=== PATIENT | male | born 1955 | race Caucasian/White ===

== ENCOUNTER → 2019-12-28 07:59 | Outpatient (BNVA) | payer MEDICARE, SELFPAY | PROVIDERS: PCP Internal Medicine; Referring Provider Internal Medicine; Visit Provider Internal Medicine Endocrinology, Diabetes & Metabolism | DX: E89.0 Postprocedural hypothyroidism (principal); Z85.850 Personal history of malignant neoplasm of thyroid; Z79.899 Other long term (current) drug therapy | CPT/HCPCS: 99214 ==

== ENCOUNTER → 2020-06-27 07:39 | Outpatient (BNVA) | payer MEDICARE, SELFPAY | PROVIDERS: PCP Internal Medicine; Visit Provider Internal Medicine Endocrinology, Diabetes & Metabolism | DX: E89.0 Postprocedural hypothyroidism (principal); C73 Malignant neoplasm of thyroid gland | CPT/HCPCS: 99212 ==

== ENCOUNTER 2020-06-27 08:23 | Outpatient (REF) | payer MEDICARE, SELFPAY ==
[2020-06-27 11:06] LABS: Free T4 (Free Thyroxine) 1.04 ng/dL (0.71-1.85); Thyroid Stimulating Hormone 2.81 uIU/mL (0.32-4.0)
== END 2020-06-27 08:24 | disposition home or self-care (01) ==
LOC: HO.10HDL 08:23
PROVIDERS: Visit Provider Internal Medicine Endocrinology, Diabetes & Metabolism
DX: E89.0 Postprocedural hypothyroidism (principal); C73 Malignant neoplasm of thyroid gland
CPT/HCPCS: 36415; 84439; 84443

== ENCOUNTER 2024-12-14 14:08 | Outpatient (AMB) | payer MEDICARE, SELFPAY ==
[2024-12-14 14:13] VITALS: BP 162/94; PULSE 82; RESP 18; O2SAT 98; BMI 36.2
--- NOTE | 2024-12-14 14:13 | A.OFFVIS_ITS ---
Vital Signs 12/14/24 14:13 Height 5 ft 4 in Weight 211 lb BMI 36.2 BP 162/94 H Blood Pressure Location Lt brachial Position Sitting Respiration 18 Pulse 82 Pulse Source Pulse Oximeter Pulse Oximetry (%) 98 Oxygen Delivery Method Room Air Intake Visit Reasons: DIABETIC MONONEUROPATHY Magazine Publisher Required: No Allergies morphine Allergy (Unknown, Verified 12/14/24 14:10) Unknown HPI HPI DIABETIC MONONEUROPATHY: Details: Belem (who wants to be called Puneet) presents in my office with somewhat unusual presentation. He was referred to my office with diagnosis of diabetic mononeuropathy. However the patient denies diabetes. He reports pain in the left lower extremity radiating down to the left foot as well as pain in the right foot. He reports that he is not able to lift his left hip form the ground. He relates his pain to a fall in 2023. He reports fall in the driveway at his house. He reports his pain 8/10 today. Because of his pain he can not do any activities of daily living can not take care of himself can not function normally and can not sleep normally. He is unemployed and on fix it income. His pain is not affected by any applications. He reports in terms of tissue damage his pain as hot burning, tingling, hurting,sore,hurting, aching, tight and heavy sensation. He received xray images of his foot, he went for physical therapy and reported no improvement, he received steroid injection into the left 1st metatarsal pharyngeal joint with no improvement. He stated today that he had an EMG performed however this EMG is not available for me. This is crucial element of the diagnostic study which will allow me to consider what is the situation with this patient. He was referred here as the diabetic neuropathy patient but patient denies diabetes. He has difficulty lifting his left hip flexing hip in the hip joint and this maybe a result of the spinal problems. [facility] Medical History (Updated 12/14/24 @ 16:51 by Bg Salmon MD) Post-surgical hypothyroidism Thyroid cancer Surgical History (Updated 12/23/19 @ 11:19 by AKTHY Holland) History of quadruple bypass Hx of right inguinal hernia repair Hx of lithotripsy Hx of total thyroidectomy Family History (Updated 12/28/19 @ 08:07 by Gina Cruz LPN) Brother No problems noted. Father No problems noted. Social History (Updated 12/28/19 @ 08:08 by Gina Cruz LPN) Years Smoked: 12 years Review of Systems Const All systems reviewed & are unremarkable except as noted in HPI and below ENT Reports Normal hearing present Neuro Reports Normal hearing present, Denies Abnormal speech present, Denies confusion and Denies Sensory deficit (Neuro) Psych Denies confusion Physical Exam Vital Signs: Last Vital Signs Pulse 82 12/14/24 14:13 Resp 18 12/14/24 14:13 BP 162/94 H 12/14/24 14:13 Pulse Ox 98 12/14/24 14:13 Oxygen Delivery Method Room Air 12/14/24 14:13 BMI result Body Mass Index 36.2 Const General: no acute distress; No confusion Orientation/consciousness: patient oriented x3 and No confusion Eyes General: appearance normal, both eyes and all related structures Pupils: Equal, round and reactive pupils present EOM: EOMs intact bilaterally Neck Neck: Yes full ROM Chest Chest palpation & inspection: normal inspection of the chest Resp Effort & Inspection: normal respiratory effort, able to speak in complete sentences, normal respiratory pattern, no audible wheezes and no cough Cardio Jugular venous distension: no JVD GI Inspection: Yes normal to inspection Neuro General: patient oriented x3, gait normal and No confusion Cranial nerves: Yes CN's II-XII intact bilaterally, Yes Equal, round and reactive pupils present, Yes Normal hearing present and Yes Ability to bilat erally elevate shoulders present Speech: No Abnormal speech present Gait exam (Neuro): Normal gait present Motor exam (neuro): 5/5 motor strength present throughout Sensory Exam: No Sensory deficit (Neuro) Extrem Other: Bilateral lower extremities are slightly edematous, with pale discoloration. The patient reports tenderness on palpation in the projection of the bilateral MP joints. Bilateral PT and DP pulses are +2 and symmetrical. Unable to lift the left foot from the ground unable to flex left hip joint. General: No pedal edema Psych Speech and movement: Normal speech and movement present Affect: normal affect Attitude: cooperative Thought process: Normal thought process present Thought content: Normal thought content present Insight: Good insight present (Psych) Judgement: Good judgement present (Psych) Assessment & Plan Assessment & Plan (1) Polyneuropathy: Code(s): G62.9 - Polyneuropathy, unspecified Category: Medical (2) Gout: Code(s): M10.9 - Gout, unspecified Category: Medical (3) Chronic pain syndrome: Code(s): G89.4 - Chronic pain syndrome Category: Medical (4) Diabetes: Code(s): E11.9 - Type 2 diabetes mellitus without complications Category: Medical (5) Gout: Code(s): M10.9 - Gout, unspecified Category: Medical Plan This patient is suffering from low back pain which referral organization attributed to diabetic neuropathy. However patient denies diabetes. He had diagnostic EMG procedure performed which is not available for me today. He admits thyroid cancer long time ago, he had thyroidectomy but never was treated with chemotherapy or radioactive iodine treatment. Those all the possible etiological causes of the neuropathy. I decided to take a pause with this patient and request him to sign medical information release note to obtain EMG from [facility]. I also will send this patient for CBC with differential, hemoglobin A1c, comprehensive metabolic panel. I will see this patient in 1 week. Orders: Orders Complete Blood Count Auto Diff Today G62.9 - Polyneuropathy, unspecified, G89.4 - Chronic pain syndrome, M10.9 - Gout, unspecified Comprehensive Met. Panel Today E11.9 - Type 2 diabetes mellitus without complications Hemoglobin A1c Today E11.9 - Type 2 diabetes mellitus without complications, G62.9 - Polyneuropathy, unspecified, G89.4 - Chronic pain syndrome, M10.9 - Gout, unspecified Uric Acid Urine Random Today E11.9 - Type 2 diabetes mellitus without complications, M10.9 - Gout, unspecified Coding Level of Care Code New Pt Level 3 (41567) Diagnoses Polyneuropathy G62.9 Gout M10.9 Chronic pain syndrome G89.4 Diabetes E11.9
--- OUTSIDE RECORDS SUMMARY | 2024-12-14 16:05 | XMS_ITS | Encounter Summary ---
Author Organization [facility] Address [address] [place] [address] Care Team Providers Care Polishing Machine Operator Name Role Phone King Woodson MD Primary Care Provider [phone] Encounter Details Date Type Department Care Team ([facility] st Contact Info) Description 11/15/2024 Telephone Orthopedic Surgery - [place] [address] [phone] Eldon Rodriguez, DPM [address] [address] Social History Tobacco Use Types Packs/Day Years Used Date Smoking Tobacco: Never Assessed Sex and Gender Information Value Date Recorded Sex Assigned at Not on file Legal Sex Male 6:18 AM EST Gender Identity Not on file Sexual Orientation Not on file documented as of this encounter Progress Notes * Leigh Rodriges - 11/21/2024 4:04 PM EDT Faxed [phone] * Iesha Aguilar - 11/15/2024 3:45 PM EDT Belem called in stating [facility] still has not received his referral. He states it has been over a month. He is asking for it to be resent. Please advise. Thanks documented in this encounter Plan of Treatment Not on file documented as of this encounter Visit Diagnoses Not on filedocumented in this encounter Care Teams Polishing Machine Operator Relationship Specialty Start Date End Date King Woodson MD [address] [place] [address] PCP - General Internal Medicine 07/21/24 documented as of this encounter
--- OUTSIDE RECORDS SUMMARY | 2024-12-14 16:05 | XMS_ITS ---
Author Name [facility] Organization Unknown Encounters Encounter Type Encounter Reason Primary Diagnosis Location Date Ambulatory [facility] 12/06/2024
--- OUTSIDE RECORDS SUMMARY | 2024-12-14 16:05 | XMS_ITS | Clinical Summary ---
Author Organization [facility] Address [address] [place] [address] Phone Care Team Providers Care Internet Database Specialist Name Role Phone King Woodson MD Primary Care Provider [phone] Allergies No known active allergies Medications lidocaine (LIDODERM) 5 % patch Apply 1 patch topically 1 (one) time each day. Remove & discard patch within 12 hours or as directed by . 30 each 2 5 01/23/20 25 Active diclofenac (Voltaren Arthritis Pain) 1 % topical gel Apply 4 g topically 2 (two) times a day. 240 g 1 5 12/26/19 25 Active Encounters Date Type Department Care Team Description 12/07/2024 2:30 PM EDT Office Visit Orthopedic [facility] [address] [address] Eldon Rodriguez DPM Onychomycosis (Primary Dx); Diabetic mononeuropathy simplex (CMS/HCC V24, CMS/HCC V28); Hallux rigidus of left foot; Dermatophytosis of nail 11/15/2024 Telephone Orthopedic Surgery [facility] [address] [address] Eldon Rodriguez DPM 10/25/2024 Telephone Orthopedic [facility] [address] [phone] Eldon Rodriguez DPM 10/24/2024 2:00 PM EDT Office Visit Orthopedic [facility] [address] [address] Eldon Rodriguez, DPM Diabetic mononeuropathy simplex ([facility] V24, [facility] V28) (Primary Dx); Great toe pain, left; Onychomycosis; Hallux rigidus of left foot; Dermatophytosis of nail; Pain in toe of right foot; Pain in toe of left foot from Last 3 Months Social History Tobacco Use Types Packs/Day Years Used Date Smoking Tobacco: Never Assessed Sex and Gender Information Value Date Recorded Sex Assigned at Not on file Legal Sex Male 6:18 AM EST Gender Identity Not on file Sexual Orientation Not on file Plan of Treatment Health Maintenance Due Date Last Done Comments Diabetes: Annual GFR (Glomerular Filtration Rate) 1955 Diabetes: Annual Foot Exam 09/23/1963 Diabetes: Annual Retina Eye Exam 09/23/1963 Zoster Vaccines (1 of 2) 09/23/2003 RSV Immunization Adult Patients (1 - Risk 60-74 years 1-dose series) 2013 Pneumococcal Vaccine: 50+ Years (2 of 2 - PPSV23) 06/06/2019 04/11/2019 Abdominal Aortic Aneurysm (AAA) Screen 03/01/2022 Cholesterol Screening (Lipid Panel) 03/01/2022 Colorectal Cancer Screening: Colonoscopy 03/01/2022 Falls Risk Assessment 03/01/2022 Hepatitis C Screening 03/01/2022 Medicare Annual Wellness Visit 03/01/2022 Social Influencers of Health Screening 03/01/2022 Depression Screening 03/29/2024 Diabetes: Annual Urine Albumin-Creatinine Ratio (uACR) 10/24/2024 Diabetes: Blood Sugar Contro l Test (HGBA1C) 10/24/2024 Hypertension/CHF/CAD Annual BMP Blood Test 10/24/2024 COVID-19 Vaccine (1 - 2023-2 5 season) 2024 Influenza Vaccine (#1) 2024 , 02/08/2019 DTaP,Tdap,and Td Vaccines (3 - Td or Tdap) 02/14/2034 02/15/2024, 05/31/2012 HIB Vaccines Aged Out No longer eligi ble based on patient's age to complete this topic HPV Vaccines Aged Out No longer eligi ble based on patient's age to complete this topic Hepatitis A Vaccines Aged Out No long er eligible based on patient's age to complete this topic Hepatitis B Vaccines Aged Out No long er eligible based on patient's age to complete this topic IPV Vaccines Aged Out No longer eligi ble based on patient's age to complete this topic MMR Vaccines Aged Out No longer eligi ble based on patient's age to complete this topic Meningococcal ACWY Vaccine Aged Out N o longer eligible based on patient's age to complete this topic Meningococcal B Vaccine Aged Out No l onger eligible based on patient's age to complete this topic RSV Immunization Patients Under 20 months Aged Out No longer eligible b ased on patient's age to complete this topic Varicella Vaccines Aged Out No longer eligible based on patient's age to complete this topic Procedures Procedure Name Priority Date/Time Associated Diagnosis Comments INJECTION TENDON OR LIGAMENT Routine 10/24/2024 2:00 PM EDT Hallux rigidus of left foot from Last 3 Months Results * Injection tendon or ligament (10/24/2024 2:00 PM EDT) Eldon Power DPM - 10/24/2024 2:00 PM EDT Eldon Rodriguez DPM 10/24/2024 5:49 PM Injection tendon or ligament Indications: pain Details: 25 G needle Medications: 0.5 mL lidocaine (PF) 1 %; 20 mg triamcinolone acetonide 40 mg/mL Informed Consent: Site: Foot ligament tendon Eldon Rodriguez DPM IN CLINIC/BEDSIDE ORDERAB LES Final Result from Last 3 Months Insurance [employer] Care Teams Internet Database Specialist Relationship Specialty Start Date End Date King Woodson MD [address] [place] [id number] PCP - General Internal Medicine 07/21/24
== END 2024-12-14 14:25 | disposition home or self-care (01) ==
LOC: HO.PMC 14:09
PROVIDERS: PCP Internal Medicine; Visit Provider Anesthesiology
DX: E11.40 Type 2 diabetes mellitus with diabetic neuropathy, unspecified (principal); G62.9 Polyneuropathy, unspecified; M10.9 Gout, unspecified; G89.4 Chronic pain syndrome
CPT/HCPCS: 99203

== ENCOUNTER → 2024-12-14 14:08 | Outpatient (BNVA) | payer MEDICARE, SELFPAY | PROVIDERS: PCP Internal Medicine; Visit Provider Anesthesiology | DX: G62.9 Polyneuropathy, unspecified (principal); M10.9 Gout, unspecified; G89.4 Chronic pain syndrome; E11.41 Type 2 diabetes mellitus with diabetic mononeuropathy | CPT/HCPCS: 99202 ==

== ENCOUNTER 2024-12-28 09:12 | Outpatient (AMB) | payer MEDICARE, SELFPAY ==
[2024-12-28 09:23] VITALS: BP 185/105; PULSE 73; RESP 18; O2SAT 97
--- NOTE | 2024-12-28 09:23 | A.OFFVIS_ITS ---
Vital Signs 12/28/24 09:23 Weight 210 lb BP 185/105 H Blood Pressure Location Lt brachial Position Sitting Respiration 18 Pulse 73 Pulse Source Pulse Oximeter Pulse Oximetry (%) 97 Oxygen Delivery Method Room Air Intake Visit Reasons: Follow Up Business Enterprise Officer Required: No Allergies morphine Allergy (Unknown, Verified 12/28/24 09:30) Unknown HPI Comments Details: Puneet is back in my office to discuss the results of the blood work and results of the electromyography he had with [facility] in 2022. On the lab results he is slightly anemic however his hemoglobin A1c is normal below 6. Therefore the patient is not diabetic, although he was referred to my office to be treated as the diabetes patient with diabetic neuropathy. The EMG demonstrated: 1. No evidence of generalized peripheral neuropathy, 2. Mild right ulnar neuropathy across the cubital tunnel. 3. Mild right peroneal neuropathy mostly affecting the sensory component, 4. Mild EMG changes in lower paraspinal muscle suggesting bilateral lower radiculopathy. The patient complains on pins and needles in the left lower extremity as well as inability or difficulty to flex the hip joint and lift the hip from the ground. He reports mild pain but states that it is not the pain which affects his inability to lift the leg. I suspect this patient has radiculopathy of the lumbar spine. I will send him for the MRI of the lumbar spine. I will see him in the office after the MRI. Patient was instructed to give us a call to schedule an appointment as soon as he will step up from the MRI machine. Prior: He was referred to my office with diagnosis of diabetic mononeuropathy. However the patient denies diabetes. He reports pain in the left lower extremity radiating down to the left foot as well as pain in the right foot. He reports that he is not able to lift his left hip form the ground. He relates his pain to a fall in 2023. He reports fall in the driveway at his house. He reports his pain 8/10 today. He received xray images of his foot, he went for physical therapy and reported no improvement, he received steroid injection into the left 1st metatarsal pharyngeal joint with no improvement. He stated today that he had an EMG performed however this EMG is not available for me. This is crucial element of the diagnostic study which will allow me to consider what is the situation with this patient. He was referred here as the diabetic neuropathy patient but patient denies diabetes. He has difficulty lifting his left hip flexing hip in the hip joint and this maybe a result of the spinal problems. [facility] Medical History (Updated 12/28/24 @ 10:23 by Bg Salmon MD) Post-surgical hypothyroidism Thyroid cancer Surgical History (Updated 12/23/19 @ 11:19 by KATHY Holland) History of quadruple bypass Hx of right inguinal hernia repair Hx of lithotripsy Hx of total thyroidectomy Family History (Updated 12/28/19 @ 08:07 by Gina Cruz LPN) Brother No problems noted. Father No problems noted. Social History (Updated 12/28/19 @ 08:08 by Gina Cruz LPN) Years Smoked: 12 years Review of Systems Const All systems reviewed & are unremarkable except as noted in HPI and below ENT Reports Normal hearing present Neuro Reports Normal hearing present, Denies Abnormal speech present, Denies confusion and Denies Sensory deficit (Neuro) Psych Denies confusion Physical Exam Vital Signs: Last Vital Signs Pulse 73 12/28/24 09:23 Resp 18 12/28/24 09:23 BP 185/105 H 12/28/24 09:23 Pulse Ox 97 12/28/24 09:23 Oxygen Delivery Method Room Air 12/28/24 09:23 Const General: no acute distress; No confusion Orientation/consciousness: patient oriented x3 and No confusion Eyes General: appearance normal, both eyes and all related structures Pupils: Equal, round and reactive pupils present EOM: EOMs intact bilaterally Neck Neck: Yes full ROM Chest Chest palpation & inspection: normal inspection of the chest Resp Effort & Inspection: normal respiratory effort, able to speak in complete sentences, normal respiratory pattern, no audible wheezes and no cough Cardio Jugular venous distension: no JVD GI Inspection: Yes normal to inspection Back/Spine/Pelvis Other: He reports pins and needles in the left lower extremity. He also reports and demonstrates objective difficulty with lifting left hip from the ground. He has difficulty flexing his left hip joint. Neuro General: patient oriented x3, gait normal and No confusion Cranial nerves: Yes CN's II-XII intact bilaterally, Yes Equal, round and reactive pupils present, Yes Normal hearing present and Yes Ability to bilaterally elevate shoulders present Speech: No Abnormal speech present Gait exam (Neuro): Normal gait present Motor exam (neuro): 5/5 motor strength present throughout Sensory Exam: No Sensory deficit (Neuro) Extrem General: No pedal edema Psych Speech and movement: Normal speech and movement present Affect: normal affect Attitude: cooperative Thought process: Normal thought process present Thought content: Normal thought content present Insight: Good insight present (Psych) Judgement: Good judgement present (Psych) Assessment & Plan Assessment & Plan (1) Polyneuropathy: Code(s): G62.9 - Polyneuropathy, unspecified Category: Medical (2) Gout: Code(s): M10.9 - Gout, unspecified Category: Medical (3) Chronic pain syndrome: Code(s): G89.4 - Chronic pain syndrome Category: Medical (4) Gout: Code(s): M10.9 - Gout, unspecified Category: Medical (5) Radiculopathy, lumbar region: Code(s): M54.16 - Radiculopathy, lumbar region Category: Medical Plan See discussion as above. The radiculopathy of the lumbar spine can not be excluded. I will schedule this patient for MRI lumbar spine without contrast. After that we will meet in this office and discuss the results. Patient is instructed to give us a call is a very moment he will step out from the MRI machine. Orders: Orders MR lumbar spine wo con Today M54.16 - Radiculopathy, lumbar region Coding Level of Care Code Est Pt Level 3 (35530) Diagnoses Polyneuropathy G62.9 Gout M10.9 Chronic pain syndrome G89.4 Radiculopathy, lumbar region M54.16
--- OUTSIDE RECORDS SUMMARY | 2024-12-28 10:00 | XMS_ITS | Clinical Summary ---
Author Organization [facility] Address [address] [place] [address] Phone Care Team Providers Care Hospitality Intern Name Role Phone King Woodson MD Primary Care Provider [phone] Allergies No known active allergies Medications lidocaine (LIDODERM) 5 % patch Apply 1 patch topically 1 (one) time each day. Remove & discard patch within 12 hours or as directed by . 30 each 2 5 01/23/20 25 Active diclofenac (Voltaren Arthritis Pain) 1 % topical gel Apply 4 g topically 2 (two) times a day. 240 g 1 5 12/26/19 25 Encounters Date Type Department Care Team Description 12/07/2024 2:30 PM EDT Office Visit Orthopedic [facility] [address] [phone] Eldon Rodriguez DPM Onychomycosis (Primary Dx); Diabetic mononeuropathy simplex (CMS/HCC V24, CMS/HCC V28); Hallux rigidus of left foot; Dermatophytosis of nail 11/15/2024 Telephone Orthopedic Surgery [facility] [address] [phone] Eldon Rodriguez DPM 10/25/2024 Telephone Orthopedic [facility] [address] [phone] Eldon Rodriguez DPM 10/24/2024 2:00 PM EDT Office Visit Orthopedic [facility] [address] [phone] Eldon Rodriguez, [place] DEL[place] Diabetic mononeuropathy simplex ([facility] V24, [facility] V28) (Primary Dx); Great toe pain, left; [...] Health Maintenance Due Date Last Done Comments Colorectal Cancer Screening: Colonoscopy 1955 Diabetes: Annual GFR (Glomerular Filtration Rate) 1955 Diabetes: Annual Foot Exam 09/23/1963 Diabetes: Annual Retina Eye Exam 09/23/1963 Zoster Vaccines (1 of 2) 09/23/2003 RSV Immunization Adult Patients (1 - Risk 60-74 years 1-dose series) 2013 Pneumococcal Vaccine: 50+ Years (2 of 2 - PPSV23, PCV20, or PCV21) 06/06/2019 04/11/2019 Abdominal Aortic Aneurysm (AAA) Screen 03/01/2022 Cholesterol Screening (Lipid Panel) 03/01/2022 Falls Risk Assessment 03/01/2022 Hepatitis C [...] Months Insurance [employer] Care Teams Hospitality Intern Relationship Specialty Start Date End Date King Woodson MD [address] [place] [id number] PCP - General Internal Medicine 07/21/24
== END 2024-12-28 10:09 | disposition home or self-care (01) ==
LOC: HO.PMC 09:12
PROVIDERS: PCP Internal Medicine; Visit Provider Anesthesiology
DX: G62.9 Polyneuropathy, unspecified (principal); M10.9 Gout, unspecified; G89.4 Chronic pain syndrome; M54.16 Radiculopathy, lumbar region
CPT/HCPCS: 99213

== ENCOUNTER → 2024-12-28 09:12 | Outpatient (BNVA) | payer MEDICARE, SELFPAY | PROVIDERS: PCP Internal Medicine; Visit Provider Anesthesiology | DX: M54.16 Radiculopathy, lumbar region (principal); M10.9 Gout, unspecified; G89.4 Chronic pain syndrome; G62.9 Polyneuropathy, unspecified | CPT/HCPCS: 99212 ==

== ENCOUNTER → 2025-02-25 10:46 | Outpatient (BNV) | payer MEDICARE, SELFPAY | PROVIDERS: Visit Provider Radiology Vascular & Interventional Radiology | DX: M47.26 Other spondylosis with radiculopathy, lumbar region (principal) | CPT/HCPCS: 72148 ==

== ENCOUNTER 2025-02-25 10:54 | Outpatient (REF) | payer MEDICARE, SELFPAY ==
--- NOTE | ~2025-02-25 | MR_ITS ---
CLINICAL HISTORY: M54.16 - Radiculopathy, lumbar region MR lumbar spine without gadolinium Comparison: None Findings: No scoliosis or spondylolisthesis. No acute fracture or pathologic bone lesion. Cauda equina and conus medullaris within normal limits. Diffuse disc space loss and disc desiccation. Paraspinous musculature intact. Retroperitoneal structures visualized are unremarkable. Individual levels: T12-L1: Prominent right eccentric disc protrusion with facet hypertrophy. Moderate right neural foraminal narrowing. No central canal stenosis. L1-L2: Broad-based disc protrusion with facet hypertrophy. Moderate right neural foraminal narrowing. No central canal stenosis. L2-L3: Moderate broad-based disc protrusion with significant facet hypertrophy. Moderately severe left neural foraminal narrowing and moderate to severe central canal stenosis. L3-L4: Broad-based disc protrusion with facet hypertrophy. Moderate central canal stenosis and moderately severe bilateral neural foraminal narrowing. L4-L5: Small posterior disc protrusion. Moderately severe right neural foraminal narrowing and moderate left neural foraminal narrowing. L5-S1: Small posterior disc protrusion with facet hypertrophy. There is moderately severe bilateral neural foraminal narrowing. No central canal stenosis. IMPRESSION: Moderate lumbar spondylosis diffusely as detailed. This document has been electronically signed by: John Rodrigues MD on 02/26/2025 09:45:02
--- OUTSIDE RECORDS SUMMARY | 2025-02-25 10:59 | XMS_ITS | Clinical Summary ---
Author Organization [facility] Address [address] [place] [address] Phone Care Team Providers Care Sales Product Manager Name Role Phone King Woodson MD Primary Care Provider [phone] Allergies No known active allergies Encounters Date Type Department Care Team Description 12/07/2024 2:30 PM EDT Office Visit Orthopedic Surgery - [place] [address] [place] [phone] Eldon Rodriguez DPM Onychomycosis (Primary Dx); Diabetic mononeuropathy simplex (CMS/HCC V24, CMS/HCC V28); Hallux rigidus of left foot; Dermatophytosis of nail from Last 3 Months Social History Tobacco [...] 09/23/1963 Diabetes: Annual Retina Eye Exam 09/23/1963 RSV Immunization Adult Patients (1 - Risk 50-74 years 1-dose series) 09/23/2003 Zoster Vaccines (1 of 2) 09/23/2003 Pneumococcal Vaccine: 50+ Years (2 of 2 [...] Blood Test 10/24/2024 COVID-19 Vaccine (1 - 2024-2 6 season) 2024 Influenza Vaccine (#1) 2024 , [...] on patient's age to complete this topic Insurance [employer] Care Teams Sales Product Manager Relationship Specialty Start Date [place] [address] PCP - General Internal Medicine 07/21/24
== END 2025-02-25 10:55 | disposition home or self-care (01) ==
LOC: HO.MRI 10:54
PROVIDERS: Visit Provider Anesthesiology
DX: M54.16 Radiculopathy, lumbar region (principal)
CPT/HCPCS: 72148

== ENCOUNTER 2025-03-08 12:43 | Outpatient (AMB) | payer MEDICARE, SELFPAY ==
[2025-03-08 12:47] VITALS: BP 150/70; PULSE 70; RESP 16; O2SAT 96; BMI 35.9
--- NOTE | 2025-03-08 12:47 | A.OFFVIS_ITS ---
Vital Signs 03/08/25 12:47 Height 5 ft 4 in Weight 209 lb BMI 35.9 BP 150/70 H Blood Pressure Location Rt brachial Position Sitting Respiration 16 Pulse 70 Pulse Source Pulse Oximeter Pulse Oximetry (%) 96 Oxygen Delivery Method Room Air Intake Visit Reasons: MRI FOLLOW UP Dental Manager Required: No Accompanied by: Self / Same As Patient Allergies morphine Allergy (Unknown, Verified 03/08/25 12:47) Unknown HPI Comments Details: Puneet is back in my office with continuous complaint on weakness in the left hip flexion and pain in the left lower extremity, pins and needle sensation in the left lower extremity.. His EMG was evident of lower lumbar radiculopathy. No peripheral neuropathy. The MRI of the patient demonstrated left neural foraminal stenosis L2-L3 and spinal canal stenosis at this level as well. Full dictation of the MRI see as below. I want to try transforaminal L2-L3 epidural steroid injection trying to help the pain of this patient. The weakness of the left hip flexion is most bothering problem for the patient. Prior: He was referred to my office with diagnosis of diabetic mononeuropathy. However the patient denies diabetes. He reports pain in the left lower extremity radiating down to the left foot as well as pain in the right foot. He reports that he is not able to lift his left hip form the ground. He relates his pain to a fall in 2023. He reports fall in the driveway at his house. He reports his pain /10 today. He received xray images of his foot, he went for physical therapy and reported no improvement, he received steroid injection into the left 1st metatarsal pharyngeal joint with no improvement. [facility] Medical History (Updated 12/28/24 @ 10:23 by Bg Salmon MD) Post-surgical hypothyroidism Thyroid cancer Surgical History (Updated 12/23/19 @ 11:19 by KATHY Holland) History of quadruple bypass Hx of right inguinal hernia repair Hx of lithotripsy Hx of total thyroidectomy Family History (Updated 12/28/19 @ 08:07 by Gina Cruz LPN) Brother No problems noted. Father No problems noted. Social History (Updated 12/28/19 @ 08:08 by Gina Cruz LPN) Years Smoked: 12 years Review of Systems Const All systems reviewed & are unremarkable except as noted in HPI and below ENT Reports Normal hearing present Neuro Reports Normal hearing present, Denies Abnormal speech present, Denies confusion and Denies Sensory deficit (Neuro) Psych Denies confusion Physical Exam Const General: no acute distress; No confusion Orientation/consciousness: patient oriented x3 and No confusion Eyes General: appearance normal, both eyes and all related structures Pupils: Equal, round and reactive pupils present EOM: EOMs intact bilaterally Neck Neck: Yes full ROM Chest Chest palpation & inspection: normal inspection of the chest Resp Effort & Inspection: normal respiratory effort, able to speak in complete sente nces, normal respiratory pattern, no audible wheezes and no cough Cardio Jugular venous distension: no JVD GI Inspection: Yes normal to inspection Back/Spine/Pelvis Other: He reports pins and needles in the left lower extremity. He also reports and demonstrates objective difficulty with lifting left hip from the ground. He has difficulty flexing his left hip joint. Neuro General: patient oriented x3, gait normal and No confusion Cranial nerves: Yes CN's II-XII intact bilaterally, Yes Equal, round and reactive pupils present, Yes Normal hearing present and Yes Ability to bilaterally elevate shoulders present Speech: No Abnormal speech present Gait exam (Neuro): Normal gait present Motor exam (neuro): 5/5 motor strength present throughout Sensory Exam: No Sensory deficit (Neuro) Extrem General: No pedal edema Psych Speech and movement: Normal speech and movement present Affect: normal affect Attitude: cooperative Thought process: Normal thought process present Thought content: Normal thought content present Insight: Good insight present (Psych) Judgement: Good judgement present (Psych) Results Reviewed Results Reviewed: MR lumbar spine without gadolinium Comparison: None Findings: No scoliosis or spondylolisthesis. No acute fracture or pathologic bone lesion. Cauda equina and conus medullaris within normal limits. Diffuse disc space loss and disc desiccation. Paraspinous musculature intact. Retroperitoneal structures visualized are unremarkable. Individual levels: T12-L1: Prominent right eccentric disc protrusion with facet hypertrophy. Moderate right neural foraminal narrowing. No central canal stenosis. L1-L2: Broad-based disc protrusion with facet hypertrophy. Moderate right neural foraminal narrowing. No central canal stenosis. L2-L3: Moderate broad-based disc protrusion with significant facet hypertrophy. Moderately severe left neural foraminal narrowing and moderate to severe central canal stenosis. L3-L4: Broad-based disc protrusion with facet hypertrophy. Moderate central canal stenosis and moderately severe bilateral neural foraminal narrowing. L4-L5: Small posterior disc protrusion. Moderately severe right neural foraminal narrowing and moderate left neural foraminal narrowing. L5-S1: Small posterior disc protrusion with facet hypertrophy. There is moderately severe bilateral neural foraminal narrowing. No central canal stenosis. IMPRESSION: Moderate lumbar spondylosis diffusely as detailed. Assessment & Plan Assessment & Plan (1) Polyneuropathy: Code(s): G62.9 - Polyneuropathy, unspecified Category: Medical (2) Gout: Code(s): M10.9 - Gout, unspecified Category: Medical (3) Chronic pain syndrome: Code(s): G89.4 - Chronic pain syndrome Category: Medical (4) Gout: Code(s): M10.9 - Gout, unspecified Category: Medical (5) Radiculopathy, lumbar region: Code(s): M54.16 - Radiculopathy, lumbar region Category: Medical Plan I will schedule this patient for transforaminal epidural steroid injection L2-L3 and L3-L4 on the left. I will use Decadron. After that I will see patient in the office and we will discuss further management. Possibility of treatment of his painful condition with neurosurgery was explained to the patient as well. Coding Level of Care Code Est Pt Level 3 (76698) Diagnoses Polyneuropathy G62.9 Gout M10.9 Chronic pain syndrome G89.4 Radiculopathy, lumbar region M54.16
== END 2025-03-08 13:04 | disposition home or self-care (01) ==
LOC: HO.PMC 12:43
PROVIDERS: Visit Provider Anesthesiology
DX: G62.9 Polyneuropathy, unspecified (principal); M10.9 Gout, unspecified; G89.4 Chronic pain syndrome; M54.16 Radiculopathy, lumbar region
CPT/HCPCS: 99213

== ENCOUNTER → 2025-03-08 12:43 | Outpatient (BNVA) | payer MEDICARE, SELFPAY | PROVIDERS: Visit Provider Anesthesiology | DX: M54.16 Radiculopathy, lumbar region (principal); G62.9 Polyneuropathy, unspecified; M10.9 Gout, unspecified; G89.4 Chronic pain syndrome | CPT/HCPCS: 99212 ==